=== PATIENT | female | born 1985 | race Caucasian/White ===

== ENCOUNTER 2023-06-25 14:01 | Outpatient (CLI) | payer OTHER, SELFPAY | END 2023-06-25 14:02 | disposition home or self-care (01) | PROVIDERS: PCP Family Medicine; Visit Provider Registered Nurse | DX: Z13.220 Encounter for screening for lipoid disorders (principal); Z13.228 Encounter for screening for other metabolic disorders; Z13.0 Encounter for screening for diseases of the blood and blood-forming organs and certain disorders involving the immune mechanism | CPT/HCPCS: 80048; 80051; 80061; 82040; 82565; 83615; 84443; 84450; 84460 ==

== ENCOUNTER 2024-11-04 08:34 | Outpatient (CLI) | payer OTHER, SELFPAY ==
--- NOTE | 2024-11-04 08:45 | CRLHL7_ITS ---
For Patients: As a result of the Cures Act, medical imaging exams and procedure reports are released immediately into your electronic medical record. You may view this report before your referring provider. If you have questions, please contact your health care provider. DIGITAL DIAGNOSTIC BILATERAL MAMMOGRAM USING TOMOSYNTHESIS AND COMPUTER-AIDED DETECTION RIGHT BREAST ULTRASOUND CLINICAL HISTORY: RIGHT breast lump. COMPARISON: None. TECHNIQUE: Digital BILATERAL mammogram in four projections with computer-aided detection. Tomosynthesis was used in this interpretation. Real-time ultrasound imaging of RIGHT breast with imaging documentation. BREAST COMPOSITION: The breasts are heterogeneously dense, which may obscure small masses. FINDINGS: 3D CC/MLO BILATERAL mammogram images submitted. No suspicious masses or architectural distortion. No suspicious calcifications or adenopathy. Targeted RIGHT breast ultrasound performed in the area of concern at 10 o`clock 4 cm from the nipple. Dense fibroglandular tissue is present. There is also a small cyst present at anterior depth which measures 3 x 2 x 3 millimeters. IMPRESSION: No suspicious findings. No evidence of malignancy. RECOMMENDATIONS: Age-appropriate screening mammography. A lay language report of this examination will be provided to the patient. BI-RADS Category 2: Benign Dictated by Jama Burger MD @ 11/04/2024 9:56:58 AM jj/Dictated by: Jama Burger MD @ 11/04/2024 9:56:00 AM (Electronically Signed)
--- NOTE | 2024-11-04 09:15 | CRLHL7_ITS ---
For Patients: As a result of the Cures Act, medical imaging exams and procedure reports are released immediately into your electronic medical record. You may view this report before your referring provider. If you have questions, please contact your health care provider. SEE DIGITAL DIAGNOSTIC BILATERAL MAMMOGRAM PERFORMED SAME DAY CRL:[email or web address]/Dictated by: Jama Burger MD @ 11/04/2024 9:57:00 AM (Electronically Signed)
== END 2024-11-04 08:35 | disposition home or self-care (01) ==
LOC: MAMMO 08:35
PROVIDERS: PCP Family Medicine; Visit Provider Registered Nurse
DX: N63.10 Unspecified lump in the right breast, unspecified quadrant (principal); R92.8 Other abnormal and inconclusive findings on diagnostic imaging of breast
CPT/HCPCS: 76642; 77066; G0279